=== PATIENT | female | born 1990 | race American Indian/Alaskan Native ===

== ENCOUNTER 2019-01-06 07:59 | Emergency (ER) | payer MEDICAID ==
[2019-01-06 08:08] VITALS: BP 118/70
[2019-01-06] MEDS ORDERED: TORADOL IM ONE (08:32)
--- NOTE | 2019-01-06 09:16 | XRay Report ---
Cervical spine 3 views 0851 INDICATION: Stiff neck after sitting on floor, neck pain, no definite trauma, difficulty with neck mo tion No soft tissue swelling is seen. Mild degenerative changes are seen with mild disc space narrowing at C5-6. No fractures or subluxations are seen. Odontoid is not well visualized on the odontoid view. IMPRESSION: Mild degenerative changes without obvious acute abnormality Signer Name: Sean Cuevas MD Signed: 01/06/2019 9:12 AM Workstation Name: [id number]
--- NOTE | 2019-01-06 09:27 | Emergency Department Report ---
ED General Adult HPI - General Chief complaint: Extremity Problem,Nontraumatic Stated complaint: CAN'T MOVE LT SIDE Time Seen by Provider: 01/06/19 08:27 Source: patient Mode of arrival: Ambulatory Limitations: No Limitations - History of Present Illness Initial comments: Patient is a 28-year-old female who is presenting with neck pain. Patient states she woke up this morning is having difficulty turning her head. Patient denies any trauma. Patient states when she turned tries to turn her neck she has intense pain radiating into the left shoulder. Patient denies any falls bowel or bladder dysfunction and fevers at this time. Severity scale (0 -10): 6 - Related Data Previous Rx's Medication Instructions Recorded Last Taken Type Acetaminophen [Acetaminophen TAB] 500 mg PO Q6HR PRN #20 tablet 06/29/18 Unknown Rx Phenazopyridine [Pyridium] 100 mg PO TID #6 tab 06/29/18 Unknown Rx levoFLOXacin [Levaquin] 750 mg PO QDAY #7 tablet 06/29/18 Unknown Rx Ketorolac [Toradol] 10 mg PO Q6H PRN #12 tablet 01/06/19 Unknown Rx methOCARBAMOL [Robaxin TAB] 500 mg PO Q6H PRN #14 tablet 01/06/19 Unknown Rx traMADol [Ultram] 50 mg PO Q6HR PRN #12 tablet 01/06/19 Unknown Rx Allergies Allergy/AdvReac Type Severity Reaction Status Date / Time No Known Allergies Allergy Unverified 06/29/18 00:15 ED Review of Systems ROS: Stated complaint: CAN'T MOVE LT SIDE Other details as noted in HPI Comment: All other systems reviewed and negative ED Past Medical Hx - Past Medical History Previous Medical History?: No - Surgical History Past Surgical History?: No - Social History Smoking Status: Never Smoker Substance Use Type: None - Medications Home Medications: Home Medications Medication Instructions Recorded Confirmed Last Taken Type Acetaminophen [Acetaminophen TAB] 500 mg PO Q6HR PRN #20 tablet 06/29/18 Unknown Rx Phenazopyridine [Pyridium] 100 mg PO TID #6 tab 06/29/18 Unknown Rx levoFLOXacin [Levaquin] 750 mg PO QDAY #7 tablet 06/29/18 Unknown Rx Ketorolac [Toradol] 10 mg PO Q6H PRN #12 tablet 01/06/19 Unknown Rx methOCARBAMOL [Robaxin TAB] 500 mg PO Q6H PRN #14 tablet 01/06/19 Unknown Rx traMADol [Ultram] 50 mg PO Q6HR PRN #12 tablet 01/06/19 Unknown Rx ED Physical Exam - General Limitations: No Limitations General appearance: alert, in no apparent distress - Head Head exam: Present: atraumatic, normocephalic - Eye Eye exam: Present: normal appearance - ENT ENT exam: Present: mucous membranes moist - Neck Neck exam: Present: normal inspection - Respiratory Respiratory exam: Present: normal lung sounds bilaterally. Absent: respiratory distress, wheezes, rales, rhonchi - Cardiovascular Cardiovascular Exam: Present: regular rate, normal rhythm - Extremities Exam Extremities exam: Present: normal inspection - Back Exam Back exam: Present: normal inspection - Neurological Exam Neurological exam: Present: alert, oriented X3 - Psychiatric Psychiatric exam: Present: normal affect, normal mood - Skin Skin exam: Present: warm, dry, intact, normal color. Absent: rash ED Course Vital Signs 01/06/19 08:04 Temperature 98.7 F Pulse Rate 79 Respiratory 18 Rate Blood Pressure 118/70 O2 Sat by Pulse 97 Oximetry ED Medical Decision Making - Radiology Data Reporting MD: Sean Cuevas Dictation Time: January 06, 2019 08:12 Firmware Manager: Not available Assistant Media Buyer Date: Cervical spine 3 views 0851 INDICATION: Stiff neck after sitting on floor, neck pain, no definite trauma, difficulty with neck motion No soft tissue swelling is seen. Mild degenerative changes are seen with mild disc space narrowing at C5-6. No fractures or subluxations are seen. Odontoid is not well visualized on the odontoid view. IMPRESSION: Mild degenerative changes without obvious acute abnormality Signer Name: Sean Cuevas MD Signed: 01/06/2019 8:12 AM Workstation Name: [id number] - Medical Decision Making Patient with some early onset degenerative changes in her cervical spine. Patient started on medications for symptomatic relief she will be discharged home. Critical care attestation.: If time is entered above; I have spent that time in minutes in the direct care of this critically ill patient, excluding procedure time. ED Disposition Clinical Impression: Acute torticollis Disposition: DC-01 TO HOME OR SELFCARE Is pt being admited?: No Does the pt Need Aspirin: No Condition: Stable Instructions: Spasmodic Torticollis (ED) Referrals: [facility], [place], [place] [Primary Care Provider] - 3-5 Days Time of Disposition: 09:27
== END 2019-01-06 09:42 | disposition home or self-care (01) ==
LOC: ED 07:59
DX: M43.6 Torticollis (principal); Z79.899 Other long term (current) drug therapy
CPT/HCPCS: 72040; 96372; 99283; J1885